=== PATIENT | male | born 1945 | race Caucasian/White ===

== ENCOUNTER 2020-01-03 06:30 | Outpatient (CLI) | payer BC, OTHER ==
[~2020-01-03] VITALS: Ht 177.8 cm; Wt 99.4 kg
[2020-01-03] VITALS (8 sets, daily range): BP systolic 120–147; BP diastolic 63–106
--- NOTE | ~2020-01-03 | P ---
[facility] [place] [address] [place] [address] PROCEDURE REPORT Name: LILIBETH CHOE [id number] Admission: 01/03/20 Attend Phys: Gilberto Cordova MD Discharge: Date of : 47 Report #: [id number] THIS REPORT FOR: cc: Xavier Cannon MD, Tuongvan T. MD Couchonnal, Luis F. MD ~ CC: Gilberto Cannon DATE OF SERVICE: 01/03/2020 PROCEDURE: Biventricular ICD implantation. PREOPERATIVE DIAGNOSES: 1. Ischemic cardiomyopathy. 2. Left bundle-branch block. POSTOPERATIVE DIAGNOSES: 1. Ischemic cardiomyopathy. 2. Left bundle-branch block. HISTORY: The patient is a 74-year-old man with a history of coronary artery disease, status post CABG and AR with a history of an ischemic cardiomyopathy, EF of 30% with left bundle branch block and [place] [employer] functional class 2-3 heart failure symptoms. He has been on optimal medical therapy and is here for biventricular ICD implantation for primary prevention of sudden cardiac . ANESTHESIA: The patient underwent MAC anesthesia with no anesthesia related complications. DESCRIPTION OF PROCEDURE: The patient underwent informed consent. We discussed the details of the procedure including the risks, which include but not limited to bleeding, infection, vascular damage, cardiac perforation and pneumothorax. He understood these risks and is willing to proceed. The patient was brought to the EP laboratory in a fasting and sedated state, prepped and draped in a sterile fashion. He underwent a venogram showing patency of left axillary vein and received IV antibiotics prior to the procedure. Next, I injected lidocaine at the incision site. Incision was made. A pocket was created over the prepectoral fascia and access was obtained 3 times to the axillary vein using the extrathoracic approach with sheaths positioned using the modified Seldinger technique. Next, ventricular lead was placed at the right ventricular mid septum with adequate pacing and sensing thresholds. They did have some difficulties crossing into the tricuspid valve, but then eventually found a nice location. I then placed an atrial lead with [facility] [address] [place] [address] PROCEDURE REPORT Name: LILIBETH CHOE Room #: REG [facility] Nasir#: [id number] Admission: 01/03/20 Attend Phys: Gilberto Cordova MD Discharge: Date of : 47 Report #: [id number] adequate pacing and sensing thresholds. Both of these leads were sutured to the prepectoral fascia using Ethibond suture. Next, a coronary sinus guide sheath was placed into the right atrium and I performed a right atrial venograms and I could make out the outlines of the coronary sinus. I then advanced my sheath easily in the coronary sinus and performed a hand injection and this showed a nice posterolateral branch. I was able to position an LV lead into this vein. Of note, he really had no other options other than this branch. There were no anterior lateral branches and there was a small middle cardiac vein. There was some phrenic nerve in certain pacing configurations at this site, but we were able to find a good pacing threshold with no phrenic nerve capture using the M2-P4 pacing configuration. The sheath was split and the lead remained in place. The LV lead was sutured to the prepectoral fascia. Pocket was irrigated with vancomycin and the pocket was closed in 2 layers using 2-0 for the deep layer and 3-0 for the middle layer. Surgical glue was placed to outer skin layer. The patient awoke neurologically and hemodynamically intact. No complications and no significant bleeding. The implanted device was a [employer], model #986251N, serial #[id number]. Atrial lead was a [employer], model #10012W, 52 cm, serial #[id number]. RV lead was a [employer], model #7122Q, 65 cm, serial #[id number] and the LV lead was a [employer], model #1458Q, 85 cm, serial #[id number]. The device was programmed to DDDR 60-130 mode. The atrial lead demonstrated P-wave 4.3 millivolts, pacing impedance of 460 ohms, pacing threshold 0.5 volts at 0.5 milliseconds. RV lead demonstrated R waves of greater than 12 millivolts, pacing impedance of 680 ohms and pacing threshold 0.75 volts at 0.5 milliseconds. The LV lead demonstrated a pacing impedance of 630 ohms and the pacing threshold 1.5 volts at 0.7 milliseconds at the M2-P4 pacing configuration. Pacing at 5 volts did not result in any phrenic nerve capture. We utilized this LV lead pacing configuration due to no phrenic nerve, decent threshold and area of latest activation in the QRS duration narrowed to 90 milliseconds when pacing in a biventricular fashion from this position. The device was programmed to the DDDR 60-130 mode. The VT zone was set at 180-220 beats per minute with 3 rounds of bursts followed by 3 rounds of ramp followed by max output shocks. The VF zone was set at greater than 222 beats per minute with ATP while charging followed by max output shocks. CONCLUSIONS: 1. Successful Bi-V ICD implantation. 2. Satisfactory atrial, right ventricular and left ventricular pacing and sensing thresholds. By: [id number] Gilberto Cordova MD /huber
[~2020-01-03 06:30] MED LIST: ASPIR 8181 MG PO; COREG25 MG PO; ENTRESTO 97 MG1 EACH PO; LASIX 80 MG TAB80 MG PO; LIPITOR40 MG PO; NITROGLYCERIN0.4 MG SUBLING; PLAVIX 75 MG TA75 M1 PO; SPIRONOLACTONE25 M1 PO; VOLTAREN GEL 1100 G2 TOP; ZETIA10 MG PO
[2020-01-03 07:32] LABS: BASOPHILS 1.2 % (0.0-2.0); EOSINOPHILS 2.6 % (0.0-3.0); HEMATOCRIT 39.4 % (42.0-52.0); HEMOGLOBIN 12.9 gm/dL (14.0-18.0); LYMPHOCYTES 20.7 % (24.0-44.0); MCH 30.3 pg (26.0-34.0); MCHC 32.8 g/dL (28.0-37.0); MCV 92.5 fL (80.0-100.0); MONOCYTES 10.7 % (1.0-8.0); PLATELET COUNT 204 thou/uL (150-400); POLYS 64.8 % (36.0-66.0); RBC 4.26 mil/uL (4.50-6.00); RDW 15.1 % (10.5-14.5); WBC 6.1 thou/uL (4.0-11.0)
[2020-01-03] MEDS ORDERED: AMIODARONE HCL400 MG PO (07:35)
[2020-01-03 07:36] LABS: CALCIUM 8.7 mg/dL (8.5-10.1); CREATININE 1.3 mg/dL (0.7-1.3); POTASSIUM 3.7 mmol/L (3.5-5.1)
[2020-01-03 07:38] LABS: PROTIME 10.7 Seconds (9.3-11.4)
--- NOTE | 2020-01-03 17:12 | NUR ---
ASSUMMED PT CARE AT APPROXIMATELY 1125. PT A&O X4. ASSESSMENT CHARTED. FALL PRECAUTIONS IN PLACE. PT DENIES HAVING CHEST PAIN. PT DENIES HAVING SOB. PT STATED HE HAD ACUTE PAIN AROUND HIS L PACEMAKER SITE. PT RECIEVED ANALGESICS. PT STATED ANALGESICS HELPED RELIEVE PAIN. PT POST PACEMAKER. PT EDUCATED ABOUT BEDREST IMMOBILIZER IN PLACE. PT HOB >45 DEGREES. PT COMFORTABLE IN BED. VITAL SIGNS STABLE. L PACEMAKER SITE C/D/I. NO HEMATOMA. PT DENIES HAVING FURTHER CONCERNS.
[2020-01-04 00:01] VITALS: BP 120/60
--- NOTE | 2020-01-04 03:38 | NUR ---
PT S/P ICD PLACEMENT. RIGHT SHOULDER, DRY CLEAN AND INTACT. MINIMAL EDEMETOUS. PT DENIES ANY PAIN. ABX GIVEN AT 0000. ICD AV-PACED. NO EVENTS OVER NIGHT. X-RAY THIS AM AND POSSIBLE DC. WILL CONTINUE TO FOLLOW POC
[2020-01-04 04:40] VITALS: BP 130/73
[2020-01-04 07:40] VITALS: BP 123/76
[2020-01-04 10:10] VITALS: BP 123/76
--- NOTE | 2020-01-04 12:08 | NUR ---
ASSESSMENT DOCUMENTED. VSS. AV PACED ON THE MONITOR. NO PAIN REPORTED BY PT. IMMOBILIZER IN PLACE. TELE AND IV DISCONTINUED. PT BELONGINGS SENT HOME WITH THE PT. WILL CONTINUE TO MONITOR.
== END 2020-01-04 10:30 | disposition home or self-care (01) ==
LOC: CATH 06:30 → 2N 11:45 → CATH 17:44
PROVIDERS: Internal Medicine Cardiovascular Disease
DX: I25.5 Ischemic cardiomyopathy (principal); I44.7 Left bundle-branch block, unspecified; R06.02 Shortness of breath; I25.10 Atherosclerotic heart disease of native coronary artery without angina pectoris; I25.2 Old myocardial infarction; I10 Essential (primary) hypertension; E78.5 Hyperlipidemia, unspecified; I73.9 Peripheral vascular disease, unspecified; Z98.890 Other specified postprocedural states; Z79.899 Other long term (current) drug therapy; Z90.49 Acquired absence of other specified parts of digestive tract; Z79.82 Long term (current) use of aspirin; Z87.442 Personal history of urinary calculi; Z95.1 Presence of aortocoronary bypass graft; Z82.49 Family history of ischemic heart disease and other diseases of the circulatory system; Z86.79 Personal history of other diseases of the circulatory system